=== PATIENT | male | born 1975 | race Hispanic/Latino ===

== ENCOUNTER 2025-05-24 13:58 | Inpatient (IN) | payer SELFPAY ==
[2025-05-24 17:16] LABS: #Basophils Less than 0.03 10x3/uL (0.0-0.2); #Eosinophils 0.09 10x3/uL (0.0-0.5); #Monocytes 0.59 10x3/uL (0.0-1.1); #Neutrophils 5.67 10x3/uL (1.5-8.4); %Basophils 0.3 % (0.0-2.0); %Eosinophils 1.2 % (0.0-6.0); %Lymphocytes 16.1 % (18.0-47.0); %Monocytes 7.7 % (0.0-10.0); %Neutrophils 74.4 % (40.0-75.0); Hematocrit 40.2 % (38.8-50.0); Hemoglobin 12.7 g/dL (13.5-17.5); Mean Corpuscular Hemoglobin 23.1 pg (27.0-33.0); Mean Corpuscular Volume 73.2 fL (81.2-95.1); Platelet Count 182 10x3/uL (150-450); Red Blood Cell (RBC) Count 5.49 10x6/uL (4.32-5.72); White Blood Cell (WBC) Count 7.62 10x3/uL (3.5-10.5)
[2025-05-24 17:37] LABS: ALT (SGPT) 12 U/L (Less than 45); AST (SGOT) 22 U/L (11-34); Albumin 3.5 g/dL (3.1-4.5); Alkaline Phosphatase 118 U/L (40-110); Anion Gap 18 mmol/L (10-20); BUN (Urea Nitrogen) 24 mg/dL (8.4-25.7); Bilirubin, Total 0.5 mg/dL (0.3-1.2); Calc. Creatinine Clearance 0 mL/min (70-130); Calcium 9.8 mg/dL (7.8-10.44); Carbon Dioxide 21 mmol/L (22-29); Chloride 103 mmol/L (98-107); Globulin 4.3 g/dL (2.4-3.5); Glucose 241 mg/dL (70-105); Potassium 4.7 mmol/L (3.5-5.1); Sodium 137 mmol/L (136-145)
[2025-05-24 17:41] LABS: MDiff Complete? YES; Microcytosis SLIGHT = 6-15 cells (100X) (0-5/hpf); Platelet Adequacy Comment Appears Adequate
[2025-05-24] MEDS ORDERED: Ondansetron PF 4 MG/2 ML Vial IVP PRN (18:04)
[2025-05-24] MEDS ORDERED: Senokot S 8.6-50 MG TAB PO PRN (18:04)
[2025-05-24] MEDS ORDERED: Dextrose 50% Abboject 50 ML SYRINGE SLOW IVP PRN (18:42)
[2025-05-24] MEDS ORDERED: Glucagon 1 MG/ML KIT IM PRN (18:42)
[2025-05-24 20:44] VITALS: BMI 22.4
[2025-05-24] MEDS: Lantus 1000 UNITS/10 ML VIAL SC SCH (21:00)
[2025-05-24] MEDS ORDERED: Insulin Glargine 30 UNITS/0.3 ML VIAL SC SCH (21:00)
[2025-05-24] MEDS ORDERED: Vancomycin 1 GM in Sodium Chloride 0.9% 250 ML 250 ML IVPB SCH (21:00)
[2025-05-24 22:53] LABS: Glucose 340 mg/dL (70-105)
[2025-05-25 04:29] LABS: #Basophils Less than 0.03 10x3/uL (0.0-0.2); #Eosinophils 0.11 10x3/uL (0.0-0.5); #Monocytes 0.42 10x3/uL (0.0-1.1); #Neutrophils 3.70 10x3/uL (1.5-8.4); %Basophils 0.2 % (0.0-2.0); %Eosinophils 2.0 % (0.0-6.0); %Lymphocytes 24.4 % (18.0-47.0); %Monocytes 7.5 % (0.0-10.0); %Neutrophils 65.7 % (40.0-75.0); Hematocrit 38.7 % (38.8-50.0); Hemoglobin 12.4 g/dL (13.5-17.5); Mean Corpuscular Hemoglobin 23.0 pg (27.0-33.0); Mean Corpuscular Volume 71.8 fL (81.2-95.1); Platelet Count 201 10x3/uL (150-450); Red Blood Cell (RBC) Count 5.39 10x6/uL (4.32-5.72); White Blood Cell (WBC) Count 5.62 10x3/uL (3.5-10.5)
[2025-05-25 04:39] LABS: Vancomycin, Random 13.4 ug/mL (See Comment)
[2025-05-25 04:41] LABS: Anion Gap 13 mmol/L (10-20); BUN (Urea Nitrogen) 24 mg/dL (8.4-25.7); Calc. Creatinine Clearance 96 mL/min (70-130); Calcium 10.2 mg/dL (7.8-10.44); Carbon Dioxide 26 mmol/L (22-29); Chloride 106 mmol/L (98-107); Glucose 260 mg/dL (70-105); Potassium 4.5 mmol/L (3.5-5.1); Sodium 140 mmol/L (136-145)
[2025-05-25] MEDS: VANCOMYCIN 1.25 GM/250 ML BAG 1.25 GM in Premix 1 BAG IVPB SCH (06:01)
[2025-05-25 07:35] LABS: Glucose 178 mg/dL (70-105)
[2025-05-25] MEDS: VANCOMYCIN 2 GRAM/400 ML BAG 2 GM in Premix 1 BAG IVPB SCH (09:08)
[2025-05-25 11:45] LABS: Glucose 234 mg/dL (70-105)
[2025-05-25 17:21] LABS: Glucose 341 mg/dL (70-105)
[2025-05-25] MEDS: Acetaminophen 325 MG TAB PO PRN (21:31)
[2025-05-25 21:32] LABS: Glucose 290 mg/dL (70-105)
[2025-05-25] MEDS: Lantus 1000 UNITS/10 ML VIAL SC SCH (21:33)
[2025-05-26 07:56] LABS: Glucose 142 mg/dL (70-105)
[2025-05-26 11:57] LABS: Glucose 232 mg/dL (70-105)
[2025-05-26] MEDS: Aspirin 81 mg Enteric Coated Tablet PO SCH (14:20)
[2025-05-26 18:02] LABS: Glucose 182 mg/dL (70-105)
[2025-05-26 22:00] LABS: Glucose 270 mg/dL (70-105)
[2025-05-27 05:16] LABS: Vancomycin, Random 13.7 ug/mL (See Comment)
[2025-05-27 05:18] LABS: BUN (Urea Nitrogen) 20.0 mg/dL (8.4-25.7); Calc. Creatinine Clearance 128.0 mL/min (70-130)
[2025-05-27 08:00] LABS: Glucose 110 mg/dL (70-105)
[2025-05-27] MEDS: Aspirin 81 mg Enteric Coated Tablet PO SCH (08:47)
[2025-05-27] MEDS: hydrALAZINE 20 MG/ML VIAL SLOW IVP PRN (08:55)
[2025-05-27 13:28] LABS: Glucose 178 mg/dL (70-105)
[2025-05-27 18:08] LABS: Glucose 203 mg/dL (70-105)
[2025-05-27] MEDS: Lantus 1000 UNITS/10 ML VIAL SC SCH (21:00)
[2025-05-27] MEDS: Ciprofloxacin Lactate/D5W 400 MG in Premix 1 BAG IVPB SCH (22:01)
[2025-05-27 22:02] LABS: Glucose 195 mg/dL (70-105)
[2025-05-28] MEDS: Acetaminophen/Codeine 30-300mg Tablet PO PRN
[2025-05-28 06:39] LABS: #Basophils Less than 0.03 10x3/uL (0.0-0.2); #Eosinophils 0.13 10x3/uL (0.0-0.5); #Monocytes 0.46 10x3/uL (0.0-1.1); #Neutrophils 4.82 10x3/uL (1.5-8.4); %Basophils 0.3 % (0.0-2.0); %Eosinophils 1.8 % (0.0-6.0); %Lymphocytes 23.1 % (18.0-47.0); %Monocytes 6.5 % (0.0-10.0); %Neutrophils 68.0 % (40.0-75.0); Hematocrit 38.5 % (38.8-50.0); Hemoglobin 12.4 g/dL (13.5-17.5); Mean Corpuscular Hemoglobin 22.8 pg (27.0-33.0); Mean Corpuscular Volume 70.6 fL (81.2-95.1); Platelet Count 233 10x3/uL (150-450); Red Blood Cell (RBC) Count 5.45 10x6/uL (4.32-5.72); White Blood Cell (WBC) Count 7.09 10x3/uL (3.5-10.5)
[2025-05-28 07:41] LABS: Glucose 134 mg/dL (70-105)
[2025-05-28] MEDS ORDERED: PROPOFOL 20 ML ONE (10:44)
[2025-05-29 05:13] LABS: #Basophils Less than 0.03 10x3/uL (0.0-0.2); #Eosinophils 0.14 10x3/uL (0.0-0.5); #Monocytes 0.56 10x3/uL (0.0-1.1); #Neutrophils 4.03 10x3/uL (1.5-8.4); %Basophils 0.3 % (0.0-2.0); %Eosinophils 2.3 % (0.0-6.0); %Lymphocytes 21.1 % (18.0-47.0); %Monocytes 9.3 % (0.0-10.0); %Neutrophils 66.8 % (40.0-75.0); Hematocrit 35.3 % (38.8-50.0); Hemoglobin 11.2 g/dL (13.5-17.5); Mean Corpuscular Hemoglobin 22.5 pg (27.0-33.0); Mean Corpuscular Volume 71.0 fL (81.2-95.1); Platelet Count 212 10x3/uL (150-450); Red Blood Cell (RBC) Count 4.97 10x6/uL (4.32-5.72); White Blood Cell (WBC) Count 6.03 10x3/uL (3.5-10.5)
[2025-05-29 05:22] LABS: Anion Gap 12 mmol/L (10-20); BUN (Urea Nitrogen) 18 mg/dL (8.4-25.7); Calc. Creatinine Clearance 118 mL/min (70-130); Calcium 9.4 mg/dL (7.8-10.44); Carbon Dioxide 26 mmol/L (22-29); Chloride 101 mmol/L (98-107); Glucose 141 mg/dL (70-105); Potassium 4.0 mmol/L (3.5-5.1); Sodium 135 mmol/L (136-145)
[2025-05-29 15:36] VITALS: BMI 23.6
[2025-05-29] MEDS: Ciprofloxacin 500 MG TAB PO SCH (18:22)
[2025-05-30 04:40] LABS: Hematocrit 34.7 % (38.8-50.0); Hemoglobin 11.3 g/dL (13.5-17.5); Mean Corpuscular Hemoglobin 23.2 pg (27.0-33.0); Mean Corpuscular Volume 71.3 fL (81.2-95.1); Platelet Count 198 10x3/uL (150-450); Red Blood Cell (RBC) Count 4.87 10x6/uL (4.32-5.72); White Blood Cell (WBC) Count 5.42 10x3/uL (3.5-10.5)
[2025-05-30 04:49] LABS: Anion Gap 13 mmol/L (10-20); BUN (Urea Nitrogen) 21 mg/dL (8.4-25.7); Calc. Creatinine Clearance 103 mL/min (70-130); Calcium 9.7 mg/dL (7.8-10.44); Carbon Dioxide 25 mmol/L (22-29); Chloride 103 mmol/L (98-107); Glucose 196 mg/dL (70-105); Potassium 4.1 mmol/L (3.5-5.1); Sodium 137 mmol/L (136-145)
[2025-05-30 05:01] LABS: #Basophils Less than 0.03 10x3/uL (0.0-0.2); #Eosinophils 0.14 10x3/uL (0.0-0.5); #Monocytes 0.50 10x3/uL (0.0-1.1); #Neutrophils 3.34 10x3/uL (1.5-8.4); %Basophils 0.2 % (0.0-2.0); %Eosinophils 2.6 % (0.0-6.0); %Lymphocytes 26.0 % (18.0-47.0); %Monocytes 9.2 % (0.0-10.0); %Neutrophils 61.6 % (40.0-75.0); Anisocytosis SLIGHT = 6-15 cells (100X) (0-5/hpf); Macrocytosis SLIGHT = 6-15 cells (100X) (0-5/hpf); Ovalocytes SLIGHT = 2-5 cells (100X) (0-1/hpf); Platelet Adequacy Comment Appears Adequate; Poikilocytosis SLIGHT = 6-15 cells (100X) (0-5/hpf)
[2025-05-31 04:37] LABS: Hematocrit 34.1 % (38.8-50.0); Hemoglobin 11.0 g/dL (13.5-17.5); Mean Corpuscular Hemoglobin 23.3 pg (27.0-33.0); Mean Corpuscular Volume 72.1 fL (81.2-95.1); Platelet Count 195 10x3/uL (150-450); Red Blood Cell (RBC) Count 4.73 10x6/uL (4.32-5.72); White Blood Cell (WBC) Count 4.60 10x3/uL (3.5-10.5)
[2025-05-31 04:42] LABS: Anion Gap 13 mmol/L (10-20); BUN (Urea Nitrogen) 22 mg/dL (8.4-25.7); Calc. Creatinine Clearance 104 mL/min (70-130); Calcium 9.2 mg/dL (7.8-10.44); Carbon Dioxide 26 mmol/L (22-29); Chloride 104 mmol/L (98-107); Glucose 277 mg/dL (70-105); Potassium 3.8 mmol/L (3.5-5.1); Sodium 139 mmol/L (136-145)
[2025-05-31 04:52] LABS: Poikilocytosis SLIGHT = 6-15 cells (100X) (0-5/hpf); Polychromasia SLIGHT = 2-3 cells (100X) (0-2/hpf)
[2025-05-31 04:53] LABS: Platelet Adequacy Comment Appears Adequate
[2025-05-31 04:54] LABS: #Basophils 0.03 10x3/uL (0.0-0.2); #Eosinophils 0.22 10x3/uL (0.0-0.5); #Monocytes 0.34 10x3/uL (0.0-1.1); #Neutrophils 2.65 10x3/uL (1.5-8.4); %Basophils 0.7 % (0.0-2.0); %Eosinophils 4.8 % (0.0-6.0); %Lymphocytes 29.1 % (18.0-47.0); %Monocytes 7.4 % (0.0-10.0); %Neutrophils 57.6 % (40.0-75.0)
[2025-06-01 03:53] LABS: Hematocrit 35.2 % (38.8-50.0); Hemoglobin 11.2 g/dL (13.5-17.5); Mean Corpuscular Hemoglobin 23.0 pg (27.0-33.0); Mean Corpuscular Volume 72.4 fL (81.2-95.1); Platelet Count 232 10x3/uL (150-450); Red Blood Cell (RBC) Count 4.86 10x6/uL (4.32-5.72); White Blood Cell (WBC) Count 5.38 10x3/uL (3.5-10.5)
[2025-06-01 04:06] LABS: Anion Gap 12 mmol/L (10-20); BUN (Urea Nitrogen) 24 mg/dL (8.4-25.7); Calc. Creatinine Clearance 106 mL/min (70-130); Calcium 9.1 mg/dL (7.8-10.44); Carbon Dioxide 26 mmol/L (22-29); Chloride 103 mmol/L (98-107); Glucose 265 mg/dL (70-105); Potassium 3.9 mmol/L (3.5-5.1); Sodium 137 mmol/L (136-145)
[2025-06-01 04:14] LABS: Basophilic Stippling SLIGHT = 1-2 cells (100X) (None Seen); Ovalocytes SLIGHT = 2-5 cells (100X) (0-1/hpf); Poikilocytosis SLIGHT = 6-15 cells (100X) (0-5/hpf)
[2025-06-01 04:15] LABS: #Basophils 0.03 10x3/uL (0.0-0.2); #Eosinophils 0.20 10x3/uL (0.0-0.5); #Monocytes 0.42 10x3/uL (0.0-1.1); #Neutrophils 3.61 10x3/uL (1.5-8.4); %Basophils 0.6 % (0.0-2.0); %Eosinophils 3.7 % (0.0-6.0); %Lymphocytes 20.4 % (18.0-47.0); %Monocytes 7.8 % (0.0-10.0); %Neutrophils 67.1 % (40.0-75.0); Platelet Adequacy Comment Appears Adequate
[2025-06-01] MEDS: Milk Of Magnesia 30 ML UDCUP PO PRN (11:23)
[2025-06-01] MEDS: Lantus 1000 UNITS/10 ML VIAL SC SCH (20:03)
[2025-06-02 05:04] LABS: Anion Gap 12 mmol/L (10-20); BUN (Urea Nitrogen) 24 mg/dL (8.4-25.7); Calc. Creatinine Clearance 112 mL/min (70-130); Calcium 9.7 mg/dL (7.8-10.44); Carbon Dioxide 26 mmol/L (22-29); Chloride 104 mmol/L (98-107); Glucose 218 mg/dL (70-105); Potassium 4.1 mmol/L (3.5-5.1); Sodium 138 mmol/L (136-145)
[2025-06-02] MEDS: Aspirin 81 mg Enteric Coated Tablet PO SCH (09:01)
[2025-06-02] MEDS: Lisinopril 5 MG TAB PO SCH (09:01)
[2025-06-03 05:27] LABS: Anion Gap 12 mmol/L (10-20); BUN (Urea Nitrogen) 27 mg/dL (8.4-25.7); Calc. Creatinine Clearance 125 mL/min (70-130); Calcium 9.7 mg/dL (7.8-10.44); Carbon Dioxide 24 mmol/L (22-29); Chloride 102 mmol/L (98-107); Glucose 186 mg/dL (70-105); Potassium 3.8 mmol/L (3.5-5.1); Sodium 134 mmol/L (136-145)
[2025-06-03 16:16] VITALS: BP 97/57; TEMP 98.8
== END 2025-06-03 17:53 | disposition home or self-care (01) | DRG 617 ==
LOC: CSHERS 13:58 → CSHERHOLD 17:25 → CSHTELE 05-25 15:11
PROVIDERS: ADMIT Hospitalist; ATTEND Internal Medicine
PROC: 3E03329 Introduction of Other Anti-infective into Peripheral Vein, Percutaneous Approach (ICD-10-PCS; 2025-05-24)
PROC: 0Y6M0Z9 Detachment at Right Foot, Partial 1st Ray, Open Approach (ICD-10-PCS; principal; 2025-05-28)
PROC: 02HV33Z Insertion of Infusion Device into Superior Vena Cava, Percutaneous Approach (ICD-10-PCS; 2025-06-03)
PROC: B548ZZA Ultrasonography of Superior Vena Cava, Guidance (ICD-10-PCS; 2025-06-03)
DX: E10.621 Type 1 diabetes mellitus with foot ulcer (principal); M86.171 Other acute osteomyelitis, right ankle and foot; M87.9 Osteonecrosis, unspecified; E10.69 Type 1 diabetes mellitus with other specified complication; E10.51 Type 1 diabetes mellitus with diabetic peripheral angiopathy without gangrene; I10 Essential (primary) hypertension; Z98.890 Other specified postprocedural states; Z87.891 Personal history of nicotine dependence; Z83.3 Family history of diabetes mellitus; K21.9 Gastro-esophageal reflux disease without esophagitis; M89.8X7 Other specified disorders of bone, ankle and foot; Z79.899 Other long term (current) drug therapy; N40.0 Benign prostatic hyperplasia without lower urinary tract symptoms; Z79.82 Long term (current) use of aspirin; L97.529 Non-pressure chronic ulcer of other part of left foot with unspecified severity; L97.519 Non-pressure chronic ulcer of other part of right foot with unspecified severity; E78.00 Pure hypercholesterolemia, unspecified; E10.42 Type 1 diabetes mellitus with diabetic polyneuropathy
CPT/HCPCS: 36415; 36416; 36573; 80048; 80053; 80202; 82565; 82947; 83036; 83605; 84443; 84520; 85025; 86140; 87040; 87070; 87077; 87081; 87102; 87116; 87186; 87205; 87206; 88305; 88311; 93005; 93010; 93923; 96374; 96375; 97139; C1751; J0295; J0360; J0665; J0692; J0744; J1335; J1815; J2270; J2704; J3010; J3373; J3375

== ENCOUNTER 2025-06-11 10:03 | Outpatient (CLI) | payer SELFPAY | END 2025-06-11 10:04 | disposition home or self-care (01) | LOC: CSHWCC 10:03 | PROVIDERS: ATTEND Nurse Practitioner Family | DX: E11.621 Type 2 diabetes mellitus with foot ulcer (principal); L97.522 Non-pressure chronic ulcer of other part of left foot with fat layer exposed; L97.516 Non-pressure chronic ulcer of other part of right foot with bone involvement without evidence of necrosis; E11.65 Type 2 diabetes mellitus with hyperglycemia | CPT/HCPCS: 97605 ==

== ENCOUNTER 2025-06-14 09:44 | Outpatient (CLI) | payer SELFPAY | END 2025-06-14 09:45 | disposition home or self-care (01) | LOC: CSHWCC 09:44 | PROVIDERS: ATTEND Nurse Practitioner Family | DX: E11.621 Type 2 diabetes mellitus with foot ulcer (principal); L97.522 Non-pressure chronic ulcer of other part of left foot with fat layer exposed; L97.516 Non-pressure chronic ulcer of other part of right foot with bone involvement without evidence of necrosis; E11.65 Type 2 diabetes mellitus with hyperglycemia | CPT/HCPCS: 11042; 97605 ==

== ENCOUNTER 2025-06-18 10:10 | Outpatient (CLI) | payer SELFPAY | END 2025-06-18 10:11 | disposition home or self-care (01) | LOC: CSHWCC 10:10 | PROVIDERS: ATTEND Nurse Practitioner Family | DX: E11.621 Type 2 diabetes mellitus with foot ulcer (principal); L97.522 Non-pressure chronic ulcer of other part of left foot with fat layer exposed; L97.516 Non-pressure chronic ulcer of other part of right foot with bone involvement without evidence of necrosis; E11.65 Type 2 diabetes mellitus with hyperglycemia | CPT/HCPCS: 97605 ==

== ENCOUNTER 2025-06-25 10:13 | Outpatient (CLI) | payer OTHER | END 2025-06-25 10:14 | disposition home or self-care (01) | LOC: CSHWCC 10:13 | PROVIDERS: ATTEND Nurse Practitioner Family | DX: E11.621 Type 2 diabetes mellitus with foot ulcer (principal); L97.516 Non-pressure chronic ulcer of other part of right foot with bone involvement without evidence of necrosis; E11.65 Type 2 diabetes mellitus with hyperglycemia | CPT/HCPCS: 97605 ==

== ENCOUNTER 2025-06-28 10:53 | Outpatient (CLI) | payer OTHER | END 2025-06-28 10:54 | disposition home or self-care (01) | LOC: CSHWCC 10:53 | PROVIDERS: ATTEND Nurse Practitioner Family | DX: E11.621 Type 2 diabetes mellitus with foot ulcer (principal); L97.516 Non-pressure chronic ulcer of other part of right foot with bone involvement without evidence of necrosis; E11.65 Type 2 diabetes mellitus with hyperglycemia | CPT/HCPCS: 11042; 97605 ==

== ENCOUNTER 2025-07-09 09:49 | Outpatient (CLI) | payer OTHER | END 2025-07-09 09:50 | disposition home or self-care (01) | LOC: CSHWCC 09:49 | PROVIDERS: ATTEND Nurse Practitioner Family | DX: E11.621 Type 2 diabetes mellitus with foot ulcer (principal); L97.516 Non-pressure chronic ulcer of other part of right foot with bone involvement without evidence of necrosis; E11.65 Type 2 diabetes mellitus with hyperglycemia | CPT/HCPCS: 11042; 99213; G0463 ==

== ENCOUNTER 2025-07-16 09:58 | Outpatient (CLI) | payer OTHER | END 2025-07-16 09:59 | disposition home or self-care (01) | LOC: CSHWCC 09:58 | PROVIDERS: ATTEND Nurse Practitioner Family | DX: E11.621 Type 2 diabetes mellitus with foot ulcer (principal); L97.516 Non-pressure chronic ulcer of other part of right foot with bone involvement without evidence of necrosis; E11.65 Type 2 diabetes mellitus with hyperglycemia ==